=== PATIENT | male | born 1935 | race Caucasian/White ===

== ENCOUNTER 2017-07-15 17:57 | Inpatient (IN) | payer OTHER ==
[~2017-07-15] VITALS: Ht 175.3 cm; Wt 78.9 kg
--- NOTE | ~2017-07-15 | EKG ---
[address] [employer] [place] [address] ELECTROCARDIOGRAM REPORT Name: CRYSTAL ALVARADO BRIAN Room #: 406-P ADM IN M.R.#: [id number] Admission: 07/15/17 Attend Phys: Aki Smith MD Discharge: Date of : 31 Report #: [id number] THIS REPORT FOR: //name// [facility] ED Test Date: 2017-07-15 Test Time: 18:03:05 Pat Name: CRYSTAL ALVARADO Department: Room: 406 Gender: M Sonar Technician: PRAVEEN : 1935 Requested By: Margaret Chawla Order Number: [id number] MD: Bhavin Acosta Measurements Intervals [place] Rate: 69 P: HI: QRS: -4 QRSD: 111 T: 21 QT: 424 QTc: 455 Interpretive Statements Atrial fibrillation Low voltage, precordial leads Compared to ECG 10/16/2015 01:31:49 No significant change was found Electronically Signed On 07-17-2017 13:38:19 CDT by Bhavin Acosta [email or web address] <ELECTRONICALLY SIGNED> By: Bhavin Acosta MD, [facility] 07/17/17 1338 02 02 Bhavin Acosta MD, [facility] /EPI
--- NOTE | ~2017-07-15 | EKG ---
[address] [address] ELECTROCARDIOGRAM REPORT Name: CRYSTAL ALVARADO BRIAN Room #: 406-P ADM IN M.R.#: [id number] Admission: 07/15/17 Attend Phys: Aki Smith MD Discharge: Date of : 33 Report #: [id number] THIS REPORT FOR: //name// [facility] Test Date: 2017-07-16 Test Time: 08:12:28 Pat Name: CRYSTAL ALVARADO Department: Room: 406 P Gender: M Systems Engineer: edwige : 1935 Requested By: Shannon Burkett Order Number: [id number] MD: Bhavin Acosta Measurements Intervals [place] Rate: 129 P: VA: QRS: 0 QRSD: 105 T: 84 QT: 341 QTc: 500 Interpretive Statements Atrial fibrillation Nonspecific ST and T wave abnormality Compared to ECG 10/16/2015 01:31:49 Heart rate has increased Electronically Signed On 07-17-2017 13:42:51 CDT by Bhavin Acosta [email or web address] <ELECTRONICALLY SIGNED> By: Bhavin Acosta MD, [facility] 07/17/17 1342 D: [id number] 1 Bhavin Acosta MD, FAC /EPI
[~2017-07-15 17:57] MED LIST: APAP500; ASPIRIN EC81 M1 PO; CENTRUM SILVER1 EAC4 PO; DILTIAZEM 24HR240 M2 PO; DILTIAZEM 24HR240 MG PO; FISHOIL PO; JANTOVEN2.5 MG PO; JANTOVEN5 MG PO; LIPITOR10 MG PO; LISINOPRIL5 MG PO; LOPRESSOR100 MG PO; NAPROSYN250 MG PO; NORCO 5-325 TA1 EACH PO; PENICILLIN V P500 MG PO; POTASSIUM20 PO; TOPROL XL100 MG PO; TORSEMIDE20 MG PO; TRIAMCINOLONE A80 G2 TOP
[2017-07-15] MEDS ORDERED: BACTRIM DS TAB1 EACH PO (18:02)
[2017-07-15] MEDS ORDERED: MYRBETRIQ50 MG PO (18:02)
[2017-07-15 18:38] LABS: ABSOLUTE NEUTROPHILS 7.1 thou/uL (1.4-8.2); BASOPHILS 0.2 % (0.0-2.0); EOSINOPHILS 2.6 % (0.0-3.0); HEMATOCRIT 38.1 % (42.0-52.0); HEMOGLOBIN 12.8 gm/dL (14.0-18.0); LYMPHOCYTES 7.3 % (24.0-44.0); MCH 31.7 pg (26.0-34.0); MCHC 33.7 g/dL (28.0-37.0); MCV 94.1 fL (80.0-100.0); MONOCYTES 8.8 % (1.0-8.0); PLATELET COUNT 249 thou/uL (150-400); POLYS 81.1 % (36.0-66.0); RBC 4.05 mil/uL (4.50-6.00); RDW 14.3 % (10.5-14.5); WBC 8.8 thou/uL (4.0-11.0)
[2017-07-15 18:44] LABS: ANION GAP 12 mmol/L (7-16); BUN 23 mg/dL (7-18); CALCIUM 8.9 mg/dL (8.5-10.1); CHLORIDE 101 mmol/L (98-107); CO2 24 mmol/L (21-32); CREATININE 1.7 mg/dL (0.7-1.3); GLUCOSE 122 mg/dL (74-106); POTASSIUM 4.6 mmol/L (3.5-5.1); SODIUM 137 mmol/L (136-145)
[2017-07-15 18:53] LABS: ALBUMIN 3.3 g/dL (3.4-5.0); DIRECT BILIRUBIN < 0.1 mg/dL (<0.1-0.3); LIPASE 149 U/L (73-393); SGOT 25 U/L (15-37); SGPT 26 U/L (30-65); TOTAL BILIRUBIN 0.2 mg/dL (<0.1-1.0); TOTAL PROTEIN 8.1 g/dL (6.4-8.2); TROPONIN-I < 0.04 ng/mL (<0.06)
[2017-07-15 19:27] LABS: URINE BILIRUBIN NEGATIVE (Negative); URINE BLOOD NEGATIVE (Negative); URINE CLARITY CLEAR; URINE COLOR YELLOW; URINE GLUCOSE-RANDOM* NEGATIVE (Negative); URINE KETONES NEGATIVE (Negative); URINE LEUKOCYTES-REFLEX NEGATIVE (Negative); URINE NITRITE-REFLEX NEGATIVE (Negative); URINE PROTEIN (DIPSTICK) TRACE (Negative); URINE SPECIFIC GRAVITY >= 1.030 (1.005-1.035); URINE UROBILINOGEN 0.2 E.U./dl (0.2-1.0)
[2017-07-15 20:15] LABS: APTT 42.3 Seconds (24.5-32.8); INR 2.3; PROTIME 23.3 Seconds (9.3-11.4)
[2017-07-15 20:19] VITALS: BP 122/66
[2017-07-15 20:51] VITALS: BP 128/59
[2017-07-15 21:45] VITALS: BP 136/53
[2017-07-16 04:31] LABS: HEMATOCRIT 33.4 % (42.0-52.0); HEMOGLOBIN 11.3 gm/dL (14.0-18.0); MCH 31.8 pg (26.0-34.0); MCV 93.6 fL (80.0-100.0); RBC 3.56 mil/uL (4.50-6.00); RDW 14.1 % (10.5-14.5); WBC 6.8 thou/uL (4.0-11.0)
[2017-07-16 04:46] LABS: INR 2.4; PROTIME 24.2 Seconds (9.3-11.4)
[2017-07-16 04:55] LABS: CALCIUM 8.2 mg/dL (8.5-10.1); CREATININE 1.3 mg/dL (0.7-1.3); POTASSIUM 4.8 mmol/L (3.5-5.1)
[2017-07-16 08:00] VITALS: BP 131/78
[2017-07-16 19:24] VITALS: BP 115/63
[2017-07-17 03:45] VITALS: BP 126/60
[2017-07-17 06:00] LABS: HEMOGLOBIN 12.7 gm/dL (14.0-18.0); MCH 31.2 pg (26.0-34.0); MCHC 33.5 g/dL (28.0-37.0); MCV 93.3 fL (80.0-100.0); RBC 4.07 mil/uL (4.50-6.00); RDW 14.6 % (10.5-14.5); WBC 5.6 thou/uL (4.0-11.0)
[2017-07-17 06:20] LABS: ALBUMIN 2.6 g/dL (3.4-5.0); CREATININE 1.3 mg/dL (0.7-1.3); POTASSIUM 4.2 mmol/L (3.5-5.1); TOTAL BILIRUBIN 0.3 mg/dL (<0.1-1.0); TOTAL PROTEIN 6.9 g/dL (6.4-8.2)
[2017-07-17 08:05] VITALS: BP 125/82
[2017-07-17 15:41] VITALS: BP 126/61
[2017-07-17 20:10] VITALS: BP 122/65
[2017-07-18 04:00] VITALS: BP 111/66
[2017-07-18 05:54] LABS: MCH 31.2 pg (26.0-34.0); MCHC 33.4 g/dL (28.0-37.0); MCV 93.4 fL (80.0-100.0); RBC 4.17 mil/uL (4.50-6.00); RDW 14.4 % (10.5-14.5); WBC 5.7 thou/uL (4.0-11.0)
[2017-07-18 06:16] LABS: ALBUMIN 2.7 g/dL (3.4-5.0); CALCIUM 8.3 mg/dL (8.5-10.1); CREATININE 1.1 mg/dL (0.7-1.3); POTASSIUM 3.8 mmol/L (3.5-5.1); TOTAL BILIRUBIN 0.2 mg/dL (<0.1-1.0); TOTAL PROTEIN 7.1 g/dL (6.4-8.2)
[2017-07-18 08:37] VITALS: BP 128/79
[2017-07-18] MEDS ORDERED: AUGMENTIN 875-1 EACH PO (17:16)
[2017-07-18 17:18] VITALS: BP 128/79
[2017-07-18 17:27] VITALS: BP 128/79
== END 2017-07-18 18:40 | disposition home health service (06) | DRG 871 ==
LOC: ER 17:57 → EROBS 19:55 → 4N 19:55
PROVIDERS: Emergency Medicine; Hospitalist; Nurse Practitioner Family
DX: A41.9 Sepsis, unspecified organism (principal); J18.9 Pneumonia, unspecified organism; N17.9 Acute kidney failure, unspecified; M10.9 Gout, unspecified; I48.2 Chronic atrial fibrillation; Z96.652 Presence of left artificial knee joint; I50.9 Heart failure, unspecified; E78.5 Hyperlipidemia, unspecified; G47.33 Obstructive sleep apnea (adult) (pediatric); I11.0 Hypertensive heart disease with heart failure; I25.10 Atherosclerotic heart disease of native coronary artery without angina pectoris; Z96.1 Presence of intraocular lens; I25.2 Old myocardial infarction; Z95.1 Presence of aortocoronary bypass graft; Z90.49 Acquired absence of other specified parts of digestive tract; Z98.42 Cataract extraction status, left eye; Z98.41 Cataract extraction status, right eye; Z79.899 Other long term (current) drug therapy; Z88.8 Allergy status to other drugs, medicaments and biological substances
CPT/HCPCS: 10790

== ENCOUNTER 2017-08-27 13:12 | Emergency (ER) | payer OTHER ==
[~2017-08-27] VITALS: Ht 175.3 cm; Wt 76.2 kg
[~2017-08-27 13:12] MED LIST changes: +AUGMENTIN 875-1 EACH PO; +BACTRIM DS TAB1 EACH PO; +MYRBETRIQ50 MG PO
[2017-08-27 13:55] LABS: HEMATOCRIT 39.4 % (42.0-52.0); HEMOGLOBIN 13.4 gm/dL (14.0-18.0); MCH 31.6 pg (26.0-34.0); MCHC 33.9 g/dL (28.0-37.0); MCV 93.1 fL (80.0-100.0); RBC 4.23 mil/uL (4.50-6.00); RDW 14.3 % (10.5-14.5); WBC 6.9 thou/uL (4.0-11.0)
[2017-08-27 14:09] LABS: INR 2.3; PROTIME 23.5 Seconds (9.3-11.4)
== END 2017-08-27 15:48 | disposition home or self-care (01) ==
LOC: ER 13:12
PROVIDERS: Emergency Medicine
DX: R04.0 Epistaxis (principal); M10.9 Gout, unspecified; I11.0 Hypertensive heart disease with heart failure; M19.90 Unspecified osteoarthritis, unspecified site; I48.91 Unspecified atrial fibrillation; I25.2 Old myocardial infarction; Z96.652 Presence of left artificial knee joint

== ENCOUNTER 2018-06-05 04:59 | Inpatient (IN) | payer OTHER ==
[~2018-06-05] VITALS: Ht 175.3 cm; Wt 75.7 kg
[2018-06-05] VITALS (7 sets, daily range): BP systolic 121–152; BP diastolic 44–61
[~2018-06-05 04:59] MED LIST changes: +DILTIAZEM 24HR180 M2 PO; -DILTIAZEM 24HR240 M2 PO; -TOPROL XL100 MG PO; +TOPROL XL50 MG PO
[2018-06-05 05:15] LABS: ABSOLUTE NEUTROPHILS 6.3 thou/uL (1.4-8.2); BASOPHILS 0.8 % (0.0-2.0); EOSINOPHILS 3.2 % (0.0-3.0); HEMATOCRIT 38.9 % (42.0-52.0); HEMOGLOBIN 13.2 gm/dL (14.0-18.0); LYMPHOCYTES 21.4 % (24.0-44.0); MCH 32.4 pg (26.0-34.0); MCHC 33.9 g/dL (28.0-37.0); MCV 95.6 fL (80.0-100.0); MONOCYTES 8.7 % (1.0-8.0); PLATELET COUNT 187 thou/uL (150-400); POLYS 65.9 % (36.0-66.0); RBC 4.07 mil/uL (4.50-6.00); RDW 15.1 % (10.5-14.5); WBC 9.5 thou/uL (4.0-11.0)
[2018-06-05 05:28] LABS: ANION GAP 14 mmol/L (7-16); BUN 34 mg/dL (7-18); CALCIUM 8.5 mg/dL (8.5-10.1); CHLORIDE 106 mmol/L (98-107); CO2 20 mmol/L (21-32); CREATININE 1.4 mg/dL (0.7-1.3); GLUCOSE 116 mg/dL (74-106); POTASSIUM 4.1 mmol/L (3.5-5.1); SODIUM 140 mmol/L (136-145)
[2018-06-05 05:33] LABS: ALBUMIN 3.5 g/dL (3.4-5.0); SGOT 20 U/L (15-37); SGPT 15 U/L (30-65); TOTAL BILIRUBIN 0.3 mg/dL (<0.1-1.0); TOTAL PROTEIN 7.7 g/dL (6.4-8.2); TROPONIN-I <0.06 ng/mL (<0.06)
[2018-06-05 06:06] LABS: INR 2.9
--- NOTE | 2018-06-05 08:46 | EKG ---
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: CURLY : 1935 Requested By: Jesi Caldwell Order Number: [id number] MD: Bhavin Acosta Measurements Intervals [place] Rate: 48 P: FL: QRS: 2 QRSD: 113 T: 28 QT: 474 QTc: 424 Interpretive Statements Atrial fibrillation Ventricular premature complex Nonspecific ST segment abnormality Compared to ECG 07/16/2017 08:12:28 Ventricular premature complex(es) now present Electronically Signed On 06-05-2018 8:46:33 TEST ENGINE EVALUATOR by Bhavin Acosta [email or web address] <ELECTRONICALLY SIGNED> By: Bhavin Acosta MD, [facility] 06/05/1846 0506 0506 Bhavin Acosta MD, [facility] /EPI
[2018-06-05] MEDS ORDERED: KLOR-CON M2020 MEQ PO (09:51)
--- NOTE | 2018-06-05 12:53 | NUR ---
PT ADMITTED RELATED TO SOA. CM REVIEWED CHART AND SPOKE WITH CARE TEAM. PT IS A&O X4. CM ROLE INTRODCUED. PT INDICATED HE LIVES IN A HOUSE WITH HIS SPOUSE WITH 6 STEPS TO ENTER AND TWO FLIGHTS OF 13 STEPS INSIDE. 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 PT HAS ACCESS TO A FWW SHOULD HE NEED IT. PT HAD BEEN ON SERVICE WITH [facility] IN THE PAST AND WOULD BE RECEPTIVE TO USEING THEM AGAIN UPON DC IF INDICATED. CM TO FOLLOW INDCIATED WITH DC PLANNING.
--- NOTE | 2018-06-05 14:35 | 2DMMODE ---
[facility] [address] [place] [address] 2 D/M-MODE ECHOCARDIOGRAM Name: CRYSTAL ALVARADO Room #: 455-P ADM IN M.R.#: [id number] Admission: 06/05/18 Attend Phys: Edwina Bray Discharge: Date of : 33 Date of Service: 06/05/18 1435 Report #: [id number] THIS REPORT FOR: //name// APPROVED REPORT Study performed: 06/05/2018 11:37:23 EXAM: Comprehensive 2D, Doppler, and color-flow Echocardiogram Patient Location: Bedside Room #: [facility] Status: routine BSA: 1.98 HR: 65 bpm BP: 133/53 mmHg Rhythm: Atrial Fibrillation Other Information Study Quality: Fair Indications Congestive Heart Failure Atrial Fibrillation Dyspnea CAD Hypertension/HDD 2D Dimensions RVDd: 49.14 mm IVSd: 7.71 (7-11mm) LVOT Diam: 18.73 (18-24mm) LVDd: 47.91 mm PWd: 8.27 (7-11mm) Ascending Ao: 30.45 (22-36mm) LVDs: 33.82 (25-40mm) Aortic Root: 27.43 mm IVC: 32.00 mm Volumes Left Atrial Volume (Systole) Single Plane 4CH: 98.64 mL Single Plane 2CH: 83.69 mL LA ESV Index: 49.00 mL/m2 Aortic Valve AoV Peak Saw.: 1.33 m/s AO Peak Gr.: 7.11 mmHg LVOT Max P.48 mmHg LVOT Max V: 1.06 m/s KATHLEEN Vmax: 2.19 cm2 Pulmonary Valve [facility] [address] [place] [address] 2 D/M-MODE ECHOCARDIOGRAM Name: CHRISTIANOCRYSTAL TORRES Room #: 455-P ADM IN .R.#: [id number] Admission: 06/05/18 Attend Phys: Edwina Bray Discharge: Date of : 33 Date of Service: 06/05/18 1435 Report #: [id number] PV Peak Saw.: 1.09 m/s PV Peak Gr.: 4.74 mmHg Tricuspid Valve TR Peak Saw.: 3.00 m/s TR Peak Gr.: 36.35 mmHg PA Pressure: 46.00 mmHg Left Ventricle The left ventricle is normal size. There is normal LV segmental wall motion. There is normal left ventricular wall thickness. The left ventricular systolic function is normal. The left ventricular ejection fraction is within the normal range. LVEF is 55-60%. This study is not technically sufficient to allow evaluation of the LV diastolic function due to atrial fibrillation. Right Ventricle Right ventricle is dilated. The right ventricular systolic function is normal. Atria Left atrium is dilated. Right atrium is dilated. Aortic Valve Aortic valve is calcified. Mild aortic regurgitation. There is no aortic valvular stenosis. Mitral Valve Mild mitral annular calcification, leaflet sclerosis Trace to mild mitral regurgitation. No evidence of mitral valve stenosis. Tricuspid Valve The tricuspid valve is normal in structure. There is severe tricuspid regurgitation. Estimated PAP 46 mmHg. There is moderate pulmonary hypertension. Pulmonic Valve The pulmonary valve is normal in structure. Mild pulmonic regurgitation. Great Vessels The aortic root is normal in size. IVC is dilated and collapses <50% with inspiration. [facility] Advanced ICU [address] [place] [address] 2 D/M-MODE ECHOCARDIOGRAM Name: CHRISTIANOCRYSTAL BRIAN Room #: 455-P ADM IN M.R.#: [id number] Admission: 06/05/18 Attend Phys: Edwina Bray Discharge: Date of : 33 Date of Service: 06/05/18 1435 Report #: [id number] Pericardium There is no pericardial effusion. <Conclusion> The left ventricular systolic function is normal. There is normal LV segmental wall motion. LVEF 55-60%. Right ventricle is dilated. Both atria are dilated. Aortic valve is calcified. Mild aortic regurgitation, no stenosis. Mild mitral annular calcification, leaflet sclerosis. Trace to mild mitral regurgitation. There is severe tricuspid regurgitation. Estimated pulmonary artery pressure of 46 mmHg. There is no pericardial effusion. <ELECTRONICALLY SIGNED> By: Bhavin Acosta MD, [facility] 06/05/18 [phone] Bhavin Acosta MD, FACC /INF
--- NOTE | 2018-06-05 19:51 | NUR ---
Pt stable josh out the shift, he us up at brett and able to talk to the restroom with standby assists. On 2L of O2, but did not require any while and after walking with pt around the halls. Heart healthy / low sodium diet is well tolerated. Pt would go marco and afib on the tele, informed Dr. Acosta. Oral and IV medication given.
[2018-06-06 03:30] VITALS: BP 117/35
--- NOTE | 2018-06-06 05:36 | NUR ---
PT ON 2L NC, WHICH HE STATES IS WHAT HE WEARS AT HOME. NO C/O SOA OR DIZZINESS. WHEEZES HEARD IN LUNGS. PT HAS NO C/O PAIN OR DISCOMFORT. SLEPT THE WHOLE NIGHT WITH NO CONCERNS. PROGRESSING TOWARDS MEETING GOALS.
[2018-06-06 07:55] VITALS: BP 125/51
[2018-06-06 08:18] LABS: CREATININE 1.4 mg/dL (0.7-1.3); POTASSIUM 3.2 mmol/L (3.5-5.1)
--- NOTE | 2018-06-06 08:25 | EKG ---
[address] [address] ELECTROCARDIOGRAM REPORT Name: CRYSTAL ALVARADO Room #: 455-P ADM IN M.R.#: [id number] Admission: 06/05/18 Attend Phys: Edwina Bray MD Discharge: Date of : 33 Report #: [id number] THIS REPORT FOR: //name// [facility] Test Date: 2018-06-06 Test Time: 07:23:54 Pat Name: CRYSTAL ALVARADO Department: Room: 455 P Gender: M Respiratory Manager: GR : 1935 Requested By: Bhavin Acosta Order Number: [id number] MD: Cas Dukes Measurements Intervals [place] Rate: 79 P: DC: QRS: -10 QRSD: 108 T: 8 QT: 410 QTc: 471 Interpretive Statements Atrial fibrillation Nonspecific repolarization abnormalities Compared to ECG 06/05/2018 05:06:48 Ventricular premature complex(es) no longer present ST (T wave) deviation no longer present Electronically Signed On 06-06-2018 8:25:48 SALES REPRESENTATIVE PUBLICATIONS by Cas Dukes [email or web address] <ELECTRONICALLY SIGNED> By: Cas Dukes MD 06/06/18824 2 2 Cas Dukes MD /ISRRAEL
[2018-06-06 08:26] LABS: INR 2.6; PROTIME 26.7 Seconds (9.3-11.4)
--- NOTE | 2018-06-06 13:49 | NUR ---
CARE TEAM INDICATED THAT THEY ANTIPATE PT WILL BE MEDICALLY STABLE TO DISCHARGE HOME TOMORROW Tuesday06/07/18. PT HAS CPAP FOR HOME USE BUT DOESN'T HAVE HOME O2. PT HAS BEEN USING 2L VIA NC HERE. PT INDICATED PT WOULD BE ABLE TO RETURN HOME WITH HOME HEALTH SERVICES. PT HAD BEEN ON SERVICE WITH [facility]. CM NOTIFIED THEM OF PROBABLE DC HOME TOMORROW. PT IS TO MOVE TO SENIOR SUITES THIS AFTERNOON. CM TO FOLLOW INDICATED WITH DC PLANNING.
[2018-06-06 15:20] VITALS: BP 113/50
--- NOTE | 2018-06-06 17:00 | NUR ---
PATIENT TRANSFERRED TO UNIT APPROXIMATELY 1635. REPORT GIVEN BY NURSE SUAREZ ON 4W. PATIENT ORIENTED TO UNIT AND STAFF AND VITAL SIGNS WERE TAKEN. PATIENT CURRENTLY LYING IN BED WITH CALL LIGHT WITHIN REACH.
[2018-06-06 18:14] VITALS: BP 135/61
--- NOTE | 2018-06-07 03:30 | NUR ---
PT RESTED GOOD, DENIES PAIN, UP ADLIB, NO SOB NOTED, HUNGRY LAST NOC, REQUESTED ICE CREAM, WATCHED [employer] STATE GAME AND WENT TO BED, ABLE TO TURN AND REPOSITION SELF, HOURLY ROUNDING, MONITORED.
[2018-06-07 05:18] VITALS: BP 137/66
[2018-06-07 05:20] VITALS: BP 125/56
[2018-06-07 05:21] VITALS: BP 131/57
--- NOTE | 2018-06-07 05:24 | NUR ---
ORTHOSTATIC VITAL SIGNS OBTAINED, NO SIGNIFICANT DROP, PT UP ADLIB, DENIES DIZZINESS WHEN UP, DENIES PAIN, MONITORED.
[2018-06-07 05:39] LABS: CALCIUM 8.4 mg/dL (8.5-10.1); CREATININE 1.4 mg/dL (0.7-1.3); POTASSIUM 4.1 mmol/L (3.5-5.1)
[2018-06-07 07:11] VITALS: BP 137/65
[2018-06-07 09:53] VITALS: BP 137/65
--- NOTE | 2018-06-07 10:01 | NUR ---
Following for d/c planning needs. Spoke with physician and nurse, and reviewed chart. Pt to d/c home today with [facility]. Notified [facility] of d/c. Pt does not require oxygen. No other needs identified.
[2018-06-07] MEDS ORDERED: PANTOPRAZOLE SO40 M1 PO (11:28)
[2018-06-07] MEDS ORDERED: MIRALAX17 GM PO (11:28)
[2018-06-07] MEDS ORDERED: TYLENOL EXTRA500 MG PO (11:28)
--- NOTE | 2018-06-07 13:25 | NUR ---
I AGREE WITH NURSING ASSESSMENT DONE BY YOKO/RUFINO.
--- NOTE | 2018-06-07 13:35 | NUR ---
ASSUMED CARE OF PATIENT THIS MORNING. PATIENT IS A&OX4. HE IS UP AD RITA. IV L. WRIST SALINE LOCKED. NO ABNORMAL ASSESSMENT FINDINGS. CONTINENT OF BOWEL AND BLADDER. VOIDS PER TOILET. PATIENT DOES NOT COMPLAIN OF ANY PAIN. PATIENT WILL BE DISCHARGED THIS AFTERNOON HOME WITH HOME HEALTH. HE WILL BE DISCHARGED WITH 3 PRESCRIPTIONS.
--- NOTE | 2018-06-07 13:52 | NUR ---
PATIENT DISCHARGED HOME WITH HOME HEALTH. IV DC'D. PATIENT LEFT WITH 3 PRESCRIPTIONS. DISCHARGED INSTRUCTIONS AND PRESCRIPTIONS REVIEWED WITH PATIENT AND PATIENT WAS IN AGREEMENT AND SIGNED THE DOCUMENTATION. VOLUNTEER TRANSPORT CAME TO UNIT AND PICKED PATIENT UP WITH HIS BELONGINGS AND TOOK HIM TO THE [facility] WERE HIS SON WAS THERE FOR DEPARTURE.
--- NOTE | 2018-06-09 08:41 | HC ---
[facility] [place] [address] CONSULTATION Name: CRYSTAL ALVARADO Room #: 223-P [facility] IN M.R.#: [id number] Admission: 06/05/18 Attend Phys: Edwina Bray MD Discharge: 06/07/18 Date of : 33 Report #: [id number] THIS REPORT FOR: //name// CC: Bhavin Shelton REASON FOR CONSULTATION: Shortness of breath. HISTORY OF PRESENT ILLNESS: The patient is an 83-year-old gentleman with remote bypass surgery, sleep apnea, dyslipidemia, hypertension, diastolic heart failure and permanent atrial fibrillation. His bypass was in 2003 with a left internal mammary to the LAD, vein graft to the circumflex and a vein graft to the right coronary. The patient now presents with a 2- to 3-day history of progressive shortness of breath and orthopnea. He has had more than usual lower extremity edema. He does report that he has not been taking his diuretic regularly over the past several weeks. He denies chest heaviness or pressure. Occasional lightheadedness, without syncope. He has been compliant with his CPAP for sleep apnea. Blood pressure readings have been well controlled. No bleeding problems with warfarin. No issues or problems related to his complex pharmacologic regimen. ALLERGIES: HE IS ALLERGIC TO ALLOPURINOL. MEDICATIONS: His medicines include atorvastatin 10 mg daily, diltiazem CD 240 mg daily, Prevacid 30 mg daily, Toprol-XL 150 mg daily, torsemide 40 mg daily, potassium 40 mEq daily and warfarin 5 mg 3 days a week and 2.5 mg 4 days a week. PAST MEDICAL HISTORY: His past history and medical records have been reviewed and include a history of coronary artery disease; dyslipidemia; prior pneumonia; sleep apnea, on CPAP; appendectomy; herniorrhaphy and left total knee replacement. SOCIAL HISTORY: He is a former smoker. FAMILY HISTORY: Notable for vascular disease in both parents. REVIEW OF SYSTEMS: All systems negative, except as that noted above. PHYSICAL EXAMINATION: GENERAL: Exam reveals a pleasant elderly gentleman, in no distress. VITAL SIGNS: Blood pressure is 152/54, heart rate of 54 and regular. He is afebrile. HEENT: There are neither xanthelasma, subcutaneous xanthomata, oral mucosal, digital cyanosis or kyphoscoliosis present. [facility] [address] [place] [address] CONSULTATION Name: CHRISTIANOCRYSTAL BRIAN Room #: [address] [place] [address] IN .R.#: [id number] Admission: 06/05/18 Attend Phys: Edwina Bray MD Discharge: 06/07/18 Date of : 33 Report #: [id number] CHEST: Reveals a few bibasilar crackles. CARDIAC EXAMINATION: An irregularly irregular rhythm with a normal S1, S2. 3/6 systolic murmur RSB. Elevated JVP ABDOMEN: Soft and nontender. EXTREMITIES: With 1- to 2+ pitting edema. Radial pulses are 2+. NEUROLOGIC: He is alert, with a nonfocal exam. LABORATORY DATA: Sodium 140, potassium 4.1 and creatinine 1.4. ProBNP of 5000. Troponin 0. INR of 2.9. White count 9.5, hemoglobin 13, hematocrit 38 and platelet count 187,000. Chest x-ray demonstrates cardiomegaly with mild vascular congestion. EKG, atrial fibrillation with a controlled ventricular response and occasional PVC. IMPRESSION: 1. Lypjs-gb-ovedvtk diastolic heart failure. Possible severe isolated TR 2. Coronary artery disease with remote bypass. 3. Hypertension. 4. Sleep apnea, on CPAP. 5. Permanent atrial fibrillation. 6. Dyslipidemia. 7. Hypercoagulable. RECOMMENDATIONS: 1. Intravenous Lasix. I suspect this heart failure exacerbation is related to incomplete or poor compliance with his diuretic regimen, which he admits to. 2. Echocardiogram with Doppler. 3. Thyroid function studies. 4. Continued anticoagulant therapy (INR 2-3 range). I have discussed these issues with the patient, his family and nursing staff. Thank you for asking me to participate in his care. <ELECTRONICALLY SIGNED> By: Bhavin Acosta MD, FACC 06/09/18 0841 0816 0937 Bhavin Acosta MD, FACC /nt
== END 2018-06-07 14:06 | disposition home health service (06) | DRG 682 ==
LOC: ER 04:59 → 4W 05:52 → EROBS 05:52 → 4W 06:19 → SICU 06-06 16:44 → ENTRNSPT 06-07 12:45 → EDTRNSPT 06-07 12:54 → EDTRNSPTSTS 06-07 12:56 → SICU 06-07 14:06
PROVIDERS: Internal Medicine; Nurse Practitioner; Student in an Organized Health Care Education/Training Program; ADMIT Internal Medicine
DX: N17.9 Acute kidney failure, unspecified (principal); I50.33 Acute on chronic diastolic (congestive) heart failure; J96.01 Acute respiratory failure with hypoxia; I13.0 Hypertensive heart and chronic kidney disease with heart failure and stage 1 through stage 4 chronic kidney disease, or unspecified chronic kidney disease; D68.59 Other primary thrombophilia; N18.4 Chronic kidney disease, stage 4 (severe); M62.84 Sarcopenia; E03.9 Hypothyroidism, unspecified; M10.9 Gout, unspecified; E87.6 Hypokalemia; M19.90 Unspecified osteoarthritis, unspecified site; Z96.652 Presence of left artificial knee joint; E78.5 Hyperlipidemia, unspecified; N40.0 Benign prostatic hyperplasia without lower urinary tract symptoms; Z96.1 Presence of intraocular lens; G47.33 Obstructive sleep apnea (adult) (pediatric); I48.2 Chronic atrial fibrillation; I25.10 Atherosclerotic heart disease of native coronary artery without angina pectoris; I07.1 Rheumatic tricuspid insufficiency; Z79.82 Long term (current) use of aspirin; Z88.8 Allergy status to other drugs, medicaments and biological substances; I25.2 Old myocardial infarction; Z95.1 Presence of aortocoronary bypass graft; Z79.01 Long term (current) use of anticoagulants; Z79.899 Other long term (current) drug therapy; Z90.49 Acquired absence of other specified parts of digestive tract; Z98.42 Cataract extraction status, left eye; Z98.41 Cataract extraction status, right eye
CPT/HCPCS: 10045; 15002

== ENCOUNTER → 2019-05-14 | Outpatient (CLI) | payer OTHER ==
[~2019-05-14] MED LIST changes: +KLOR-CON M2020 MEQ PO; +MIRALAX17 GM PO; +PANTOPRAZOLE SO40 M1 PO; +TYLENOL EXTRA500 MG PO
== END ==
LOC: SJCVC 13:17
DX: Z51.81 Encounter for therapeutic drug level monitoring (principal); I48.21 Permanent atrial fibrillation; I11.0 Hypertensive heart disease with heart failure; I50.9 Heart failure, unspecified; M10.9 Gout, unspecified; E78.00 Pure hypercholesterolemia, unspecified; I25.810 Atherosclerosis of coronary artery bypass graft(s) without angina pectoris; Z95.1 Presence of aortocoronary bypass graft; Z79.01 Long term (current) use of anticoagulants

== ENCOUNTER → 2019-06-01 | Outpatient (CLI) | payer OTHER | LOC: SJCVC 11:21 | DX: Z51.81 Encounter for therapeutic drug level monitoring (principal); I48.21 Permanent atrial fibrillation; I25.10 Atherosclerotic heart disease of native coronary artery without angina pectoris; I11.0 Hypertensive heart disease with heart failure; I50.9 Heart failure, unspecified; G47.33 Obstructive sleep apnea (adult) (pediatric); M19.90 Unspecified osteoarthritis, unspecified site; E78.00 Pure hypercholesterolemia, unspecified; Z95.1 Presence of aortocoronary bypass graft; Z79.01 Long term (current) use of anticoagulants; Z87.891 Personal history of nicotine dependence ==

== ENCOUNTER → 2019-06-08 | Outpatient (CLI) | payer OTHER | LOC: SJCVC 10:57 | DX: Z51.81 Encounter for therapeutic drug level monitoring (principal); G47.33 Obstructive sleep apnea (adult) (pediatric); I48.21 Permanent atrial fibrillation; I25.10 Atherosclerotic heart disease of native coronary artery without angina pectoris; I11.0 Hypertensive heart disease with heart failure; I50.9 Heart failure, unspecified; M19.90 Unspecified osteoarthritis, unspecified site; E78.00 Pure hypercholesterolemia, unspecified; Z87.891 Personal history of nicotine dependence; Z90.49 Acquired absence of other specified parts of digestive tract ==

== ENCOUNTER → 2019-06-29 | Outpatient (CLI) | payer OTHER | LOC: SJCVC 12:50 | DX: I48.21 Permanent atrial fibrillation (principal); I25.10 Atherosclerotic heart disease of native coronary artery without angina pectoris; I10 Essential (primary) hypertension; E78.00 Pure hypercholesterolemia, unspecified; Z95.1 Presence of aortocoronary bypass graft ==

== ENCOUNTER → 2019-07-06 | Outpatient (CLI) | payer OTHER | LOC: SJCVC 09:26 | DX: Z51.81 Encounter for therapeutic drug level monitoring (principal); I48.21 Permanent atrial fibrillation; I11.0 Hypertensive heart disease with heart failure; I50.9 Heart failure, unspecified; G47.33 Obstructive sleep apnea (adult) (pediatric); I25.10 Atherosclerotic heart disease of native coronary artery without angina pectoris; M19.90 Unspecified osteoarthritis, unspecified site; M10.9 Gout, unspecified; E78.00 Pure hypercholesterolemia, unspecified; Z95.1 Presence of aortocoronary bypass graft; Z87.891 Personal history of nicotine dependence ==

== ENCOUNTER → 2019-07-13 | Outpatient (CLI) | payer OTHER | LOC: SJCVC 13:28 | DX: Z51.81 Encounter for therapeutic drug level monitoring (principal); I48.21 Permanent atrial fibrillation; I11.0 Hypertensive heart disease with heart failure; I50.9 Heart failure, unspecified; E78.00 Pure hypercholesterolemia, unspecified; Z79.01 Long term (current) use of anticoagulants ==

== ENCOUNTER → 2019-08-24 | Outpatient (CLI) | payer OTHER | LOC: SJCVC 14:17 | DX: Z51.81 Encounter for therapeutic drug level monitoring (principal); Z87.891 Personal history of nicotine dependence; Z79.01 Long term (current) use of anticoagulants ==

== ENCOUNTER → 2019-09-26 | Outpatient (CLI) | payer OTHER | LOC: SJCVC 12:51 | DX: Z51.81 Encounter for therapeutic drug level monitoring (principal); I48.21 Permanent atrial fibrillation; I11.0 Hypertensive heart disease with heart failure; I50.9 Heart failure, unspecified; I25.810 Atherosclerosis of coronary artery bypass graft(s) without angina pectoris; M19.90 Unspecified osteoarthritis, unspecified site; E78.00 Pure hypercholesterolemia, unspecified; M10.9 Gout, unspecified; E78.5 Hyperlipidemia, unspecified; Z95.1 Presence of aortocoronary bypass graft; Z79.01 Long term (current) use of anticoagulants; Z79.899 Other long term (current) drug therapy; Z87.891 Personal history of nicotine dependence ==

== ENCOUNTER → 2019-10-03 | Outpatient (CLI) | payer OTHER | LOC: SJCVC 09:25 | DX: Z51.81 Encounter for therapeutic drug level monitoring (principal); Z79.01 Long term (current) use of anticoagulants ==

== ENCOUNTER → 2019-10-17 | Outpatient (CLI) | payer OTHER | LOC: SJCVC 13:50 | PROVIDERS: ATTEND Internal Medicine | DX: Z51.81 Encounter for therapeutic drug level monitoring (principal); I48.21 Permanent atrial fibrillation; I25.810 Atherosclerosis of coronary artery bypass graft(s) without angina pectoris; I11.0 Hypertensive heart disease with heart failure; I50.9 Heart failure, unspecified; M19.90 Unspecified osteoarthritis, unspecified site; I25.10 Atherosclerotic heart disease of native coronary artery without angina pectoris; M10.9 Gout, unspecified; E78.00 Pure hypercholesterolemia, unspecified; E78.5 Hyperlipidemia, unspecified; Z95.1 Presence of aortocoronary bypass graft; Z79.01 Long term (current) use of anticoagulants; Z79.899 Other long term (current) drug therapy; Z87.891 Personal history of nicotine dependence ==

== ENCOUNTER → 2019-10-24 | Outpatient (CLI) | payer OTHER | LOC: SJCVC 14:24 | PROVIDERS: ATTEND Internal Medicine | DX: Z51.81 Encounter for therapeutic drug level monitoring (principal); Z79.01 Long term (current) use of anticoagulants; I48.21 Permanent atrial fibrillation; I25.10 Atherosclerotic heart disease of native coronary artery without angina pectoris; E78.00 Pure hypercholesterolemia, unspecified; I10 Essential (primary) hypertension; G47.33 Obstructive sleep apnea (adult) (pediatric); Z87.891 Personal history of nicotine dependence ==

== ENCOUNTER → 2019-11-21 | Outpatient (CLI) | payer OTHER | LOC: SJCVC 13:00 | PROVIDERS: ATTEND Internal Medicine | DX: Z51.81 Encounter for therapeutic drug level monitoring (principal); I48.21 Permanent atrial fibrillation; I11.0 Hypertensive heart disease with heart failure; I50.9 Heart failure, unspecified; I25.810 Atherosclerosis of coronary artery bypass graft(s) without angina pectoris; M10.9 Gout, unspecified; E78.5 Hyperlipidemia, unspecified; M19.90 Unspecified osteoarthritis, unspecified site; Z95.1 Presence of aortocoronary bypass graft; Z79.01 Long term (current) use of anticoagulants; Z87.891 Personal history of nicotine dependence; Z79.899 Other long term (current) drug therapy ==

== ENCOUNTER → 2019-12-24 | Outpatient (CLI) | payer OTHER | LOC: SJCVC 13:27 | PROVIDERS: ATTEND Internal Medicine | DX: Z51.81 Encounter for therapeutic drug level monitoring (principal); I48.21 Permanent atrial fibrillation; G47.33 Obstructive sleep apnea (adult) (pediatric); I11.0 Hypertensive heart disease with heart failure; I50.9 Heart failure, unspecified; I25.10 Atherosclerotic heart disease of native coronary artery without angina pectoris; M10.9 Gout, unspecified; Z95.1 Presence of aortocoronary bypass graft; Z79.01 Long term (current) use of anticoagulants; Z79.899 Other long term (current) drug therapy ==

== ENCOUNTER 2020-01-12 10:26 | Inpatient (IN) | payer OTHER ==
[~2020-01-12] VITALS: Ht 175.3 cm; Wt 75.7 kg
[2020-01-12 10:29] VITALS: BP 142/76
[2020-01-12 12:19] LABS: ABSOLUTE NEUTROPHILS 8.2 thou/uL (1.4-8.2); BASOPHILS 0.6 % (0.0-2.0); EOSINOPHILS 1.7 % (0.0-3.0); HEMATOCRIT 36.5 % (42.0-52.0); HEMOGLOBIN 12.4 gm/dL (14.0-18.0); LYMPHOCYTES 12.5 % (24.0-44.0); MCH 32.2 pg (26.0-34.0); MCV 94.7 fL (80.0-100.0); MONOCYTES 7.4 % (1.0-8.0); PLATELET COUNT 209 thou/uL (150-400); POLYS 77.8 % (36.0-66.0); RBC 3.85 mil/uL (4.50-6.00); RDW 14.8 % (10.5-14.5); WBC 10.5 thou/uL (4.0-11.0)
[2020-01-12 12:26] LABS: ANION GAP 11 mmol/L (7-16); BUN 19 mg/dL (7-18); CALCIUM 8.8 mg/dL (8.5-10.1); CHLORIDE 105 mmol/L (98-107); CO2 27 mmol/L (21-32); CREATININE 1.2 mg/dL (0.7-1.3); GLUCOSE 119 mg/dL (74-106); SODIUM 143 mmol/L (136-145)
[2020-01-12 12:33] LABS: ALBUMIN 3.4 g/dL (3.4-5.0); DIRECT BILIRUBIN < 0.1 mg/dL (<0.1-0.2); LIPASE 80 U/L (73-393); SGOT 24 U/L (15-37); SGPT 21 U/L (30-65); TOTAL BILIRUBIN 0.3 mg/dL (0.2-1.0)
[2020-01-12 17:35] VITALS: BP 130/68
[2020-01-12 18:00] VITALS: BP 130/68
[2020-01-12 18:30] VITALS: BP 142/56
--- NOTE | 2020-01-12 18:58 | NUR ---
PATIENT ARRIED ON UNIT AT 18:10 FROM ER TO ROOM 438. PT ALERT XS 4 USED URINAL AND HAD 150 CC CLEAR YELLOW URINE. V.S. 98.1 18 72 142/56 O2 SAT = 96%RA 5' 9 AND WEIGHTS 167 LBS. PT GIVEN BOX MEAL SANDWICH CHIPS FRUIT CUP AND APPLESAUCE. IV FLUIDS AND IV ABT STARTED. PT STATES NO PAIN OR RESP DISTRESS WEARS C- PAP AT NIGHT. PT PLEASANT AND COOPERATIVE.
[2020-01-12 19:38] VITALS: BP 131/66
--- NOTE | 2020-01-13 03:00 | NUR ---
PT ASSESSED AT START OF SHIFT A&OX4. ADMISSION DONE AND PTORIENTED TO THE UNIT. RT KNEE ERYTHEMA NOTED WARM TO TOUCH. C/O PAIN MANAGED BY PO AND IV PAIN MEDS. PT IS NWB ON THE RIGHT FOOT URINAL AT BEDSIDE. ON 2L OF O2 AT NIGHT. FALL PRE4C IN PLACE AND CALL LIGHT AT REACH WILL CONT TO MONITOR TILL EOS.
[2020-01-13 03:54] VITALS: BP 137/62
[2020-01-13 05:52] LABS: HEMATOCRIT 34.8 % (42.0-52.0); HEMOGLOBIN 11.7 gm/dL (14.0-18.0); MCHC 33.8 g/dL (28.0-37.0); MCV 94.9 fL (80.0-100.0); RBC 3.67 mil/uL (4.50-6.00); RDW 14.9 % (10.5-14.5)
[2020-01-13 05:58] LABS: PROTIME 30.7 Seconds (9.3-11.4)
[2020-01-13 06:03] LABS: CALCIUM 7.9 mg/dL (8.5-10.1); CREATININE 1.2 mg/dL (0.7-1.3); POTASSIUM 4.1 mmol/L (3.5-5.1)
[2020-01-13 06:06] LABS: URINE BILIRUBIN NEGATIVE (Negative); URINE BLOOD NEGATIVE (Negative); URINE CLARITY CLEAR; URINE COLOR YELLOW; URINE GLUCOSE-RANDOM* NEGATIVE (Negative); URINE KETONES NEGATIVE (Negative); URINE LEUKOCYTES-REFLEX NEGATIVE (Negative); URINE NITRITE-REFLEX NEGATIVE (Negative); URINE PROTEIN (DIPSTICK) NEGATIVE (Negative); URINE SPECIFIC GRAVITY 1.025 (1.005-1.035); URINE UROBILINOGEN 0.2 E.U./dl (0.2-1.0)
[2020-01-13 07:20] VITALS: BP 120/69
[2020-01-13 13:03] LABS: BF NUCLEATED CELLS 15707 /mm3; BF RBC 9059 /mm3
[2020-01-13 13:04] LABS: TOTAL VOLUME 15 mL
[2020-01-13 13:05] LABS: CLARITY CLOUDY; COLOR AMBER
[2020-01-13 14:36] LABS: SOURCE KNEE JOINT
[2020-01-13 14:38] LABS: BF MACROPHAGE 11 %; BF NEUTROPHILS 88 %
[2020-01-13 16:20] VITALS: BP 117/59
[2020-01-13 16:29] LABS: SOURCE KNEE JOINT
[2020-01-13 19:51] VITALS: BP 103/54
--- NOTE | 2020-01-13 20:16 | NUR ---
Assumed care of pt. at 0700. Pt. is calm and cooperative. Pt. struggled to bear weight to get to commode. Gait belt and max assist used to help pt. get to commode. Pt. received CT scan of knee around noon. Fall percautions in place.
--- NOTE | 2020-01-14 04:09 | NUR ---
PATIENT ALERT AND ORIENTED X4. REMAINS IN BED. C/O PAIN TO RIGHT KNEE AND MEDICATED WITH VICODIN X1 WITH GOOD RESULTS. PATIENT HAD HIS KNEE (R) ASPIRATED TODAY 01/13/20. REDNESS AND SOME SWELLING NOTED. RESTING QUIETLY. WILL MONITOR.
[2020-01-14 05:46] LABS: HEMATOCRIT 36.5 % (42.0-52.0); HEMOGLOBIN 12.1 gm/dL (14.0-18.0); MCH 31.3 pg (26.0-34.0); MCHC 33.1 g/dL (28.0-37.0); MCV 94.6 fL (80.0-100.0); RBC 3.86 mil/uL (4.50-6.00); RDW 14.9 % (10.5-14.5); WBC 10.9 thou/uL (4.0-11.0)
[2020-01-14 05:58] LABS: INR 1.7; PROTIME 17.8 Seconds (9.3-11.4)
[2020-01-14 06:07] LABS: CALCIUM 7.8 mg/dL (8.5-10.1); CREATININE 1.2 mg/dL (0.7-1.3); POTASSIUM 3.5 mmol/L (3.5-5.1)
[2020-01-14 07:15] VITALS: BP 99/57
--- NOTE | 2020-01-14 10:27 | NUR ---
PT IS AXO4, VSS, NO C/O PAIN IN R KNEE AT THIS TIME. PT REMAINS IN BED, WORKING WITH PT & OT. IV PATENET IN L FA/SL. FALL PRECAUTIONS IN PLACE. PT CALLS APPROPRIATELY. WILL CONTINUE TO MONITOR.
[2020-01-14 16:15] VITALS: BP 128/67
--- NOTE | 2020-01-14 16:38 | NUR ---
PT ADMITTED RELATED TO RT KNEE CELLUITIS, GOUT. CM REVIEWED CHART AND SPOKE WITH CARE TEAM. CM CALLED AND SPOKE WITH PT THIS DAY. PT APPERARED TO BE A&O X4. CM ROLE INTRODUCED. PT INDICATED HE LVIES IN A HOUSE WITH HIS SPOUSE WITH 5-6 STEPS TO ENTER AND A FULL FLIGHT INSIDE. 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 . PT HAD [facility] IN PAST. PT RECEPTIVE TO POST ACUTE CARE STAY IF RECOMMENDED UPON DC. PT COMPLAINING OF PAIN AND ONLY PARTICIPATED IN OT THIS DAY. CM TO FOLLOW INDICATED WITH DC PLANNING.
[2020-01-14 21:40] VITALS: BP 103/47
--- NOTE | 2020-01-15 01:00 | NUR ---
PT CARE ASSUMED WITH PT IN BED WATCHING TV.PT IS A/O X4.PT IS UP WITH ASSIST AND CALLS OUT APPROPRIETELY.FALL PRECAUTION IN PLACE.RIGHT KNEE TENDER AND PAINFUL.PT IS ON 2L OF NC AND CPAP AT NIGHT.IV ACCESS ON LH .PT C/O PAIN AND WAS GIVEN HYDROCODONE WITH RELIEF.WILL CONTINUE TO MONITOR PER POC
[2020-01-15 04:20] VITALS: BP 95/57
[2020-01-15 06:09] LABS: INR 1.4; PROTIME 14.4 Seconds (9.3-11.4)
--- NOTE | 2020-01-15 11:39 | EKG ---
[facility] [place] [address] ELECTROCARDIOGRAM REPORT Name: CRYSTAL ALVARADO BRIAN Room #: 438-P ADM IN M.R.#: [id number] Admission: 01/12/20 Attend Phys: Romina Mills MD Discharge: Date of : 31 Report #: [id number] THIS REPORT FOR: cc: Parker Shelton MD, Steven E. MD Lammoglia, Francisco J. 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 : 1935 Requested By: Aki Smith Order Number: [id number] MD: Nelson Flores Measurements Intervals [place] Rate: 128 P: [place]: QRS: -13 QRSD: 103 T: 6 QT: 324 QTc: 473 Interpretive Statements Atrial fibrillation with rapid V-rate Poor R wave progression Isolated PVC versus Guero beat Nonspecific ST-T wave change Compared to ECG 06/06/2018 07:23:54 No significant changes Electronically Signed On 01-15-2020 11:39:26 CDT by Nelson Flores [email or web address] <ELECTRONICALLY SIGNED> By: Nelson Flores MD 01/15/20 1139 1111 1111 Nelson Flores MD /EPI
[2020-01-15 15:00] VITALS: BP 117/69
--- NOTE | 2020-01-15 17:05 | NUR ---
PT ASSESSED AT START OF SHIFT. RT KNEE PAIN DOING MUCH BETTER AND PT ABLE TO WALK SOME USING WALKER. HEART RATE NOTED TO BE IN THE 130'S THIS AM AND SPB IN THE 90'S. DR. GARCIA NOTIFIED AND CARDIZEM RESTARTED. HEART RATE HAS COME DOWN BUT IS VERY ERRATIC JUMPING AROUND DOWN TO 60'S AND UP TO 130. DR. GARCIA ORDERED PT TO BE TRANSFERED TO MED/SURG TELE UNIT SO TO MONITOR HR CLOSER. PT ASYMTOMATIC AND FEELING FINE.
[2020-01-15 17:10] VITALS: BP 116/63
[2020-01-15 18:00] VITALS: BP 122/69
--- NOTE | 2020-01-15 18:53 | NUR ---
Patient transferred to Room 459 from at 1800. Patient started on Telementary Monitoring due to fluctuations in heart rate. Patient continues on O2 @ 2 Liters per nc. He denies any complaints of pain and/or discomfort. Patient is currently sitting in his recliner with his call light in reach watching the [employer] Game. Vital signs stable. Will report to on-coming nurse.
[2020-01-15 20:26] VITALS: BP 102/62
[2020-01-16] VITALS (10 sets, daily range): BP systolic 102–140; BP diastolic 60–82
--- NOTE | 2020-01-16 04:38 | NUR ---
PROGRESS PT TELEMETRY HAS BEEN RUNNING AFIB WITH RATES IN THE 118'S TO 160'S, 5MG IV LOPRESSOR GIVEN WITH NO EFFECT. PT HAD DILTIAZEM PO EARLIER IN DAY WITH O EFFECT. PT DENIES SYMPTOMS AND HAS BEEN SLEEPING THROUGHOUT NOC. TANK HAAS MEDICAL TRANSCRIBER NOTIFIED ORDERED A ONETIME DOSE OF IV LOPRESSOR AND WHEN NOTIFIED THE SECOND TIME ORDERS OBTAINED TO TRANSFER TO ROOM 209. ATTEMPTED TO CALL REPORT BUT YU RODRIGUEZ NOT READY YET WILL CALL BACK FOR REPORT.
--- NOTE | 2020-01-16 05:17 | NUR ---
REPORT GIVEN TO YU RODRIGUEZ FROM [address] [place] [address] PT TRANSFERRED TO ROOM 209 VIA BED TELEMETRY BOX CHANGED TO ONE FROM [facility] AND [facility]'S BOX RETURNED TO UNIT.
[2020-01-16 06:09] LABS: CALCIUM 8.2 mg/dL (8.5-10.1); CREATININE 1.3 mg/dL (0.7-1.3); MAGNESIUM 2.3 mg/dL (1.8-2.4); POTASSIUM 3.3 mmol/L (3.5-5.1)
--- NOTE | 2020-01-16 08:05 | NUR ---
PT TRANSFERRED TO ROOM 209 AROUND 0510, PT IS AWAKE, ALERT AND ORIENTEDX4, AFIB ON THE MONITOR HR IN THE 150S, GAVE CARDIZEM BOLUS, STARTED ON CARDIZEM GTT, HR STILL ELEVATED, DENIES CHEST PAIN OR SOB, ASSESSMENTS CHARTED, PASSED ON REPORT TO DAY NURSE
[2020-01-16 14:02] LABS: INR 1.8; PROTIME 18.6 Seconds (9.3-11.4)
--- NOTE | 2020-01-16 18:22 | NUR ---
ASSUMED CARE AT SHIFT CHANGE, ALERT AND ORIENTED X4. AFIB 140-150/MIN ON THE MONITOR, HSE COORDINATOR CARDIO AT BEDSIDE,REMIANS ON CARDIZEM DRIP PER PROTOCOL AT 20MG/HR, AND PRN LOPERSOR IVP WAS GIVEN. OTHER VSS. AND WILL CONTINUE WITH POC.
[2020-01-17] VITALS (7 sets, daily range): BP systolic 113–125; BP diastolic 45–64
--- NOTE | 2020-01-17 01:03 | NUR ---
PT IS ALERT AND ORIENTED X4. LUNGS ARE CLEAR. ON 2 LITERS NASAL CANULA. AFIB ON THE MONITOR. ON CARDIZEM DRIP. HEART RATE FLUCTUATES FROM 140 TO 120, TO 110. UPDATED DR. ROJAS JUST WANTS PT ON HIS MEDS AND DRIP. NO NEW ORDERS. PT IS RESTING STATES HE IS TIRED FROM TODAY. EXHUASTED ENCOURAGE HIM TO GET SOME SLEEP AND IS CURRENTLY SLEEPING. CALL LIGHT WITHIN REACH IF NEEDS ASSISTANCE
[2020-01-17 05:57] LABS: HEMATOCRIT 35.4 % (42.0-52.0); HEMOGLOBIN 11.9 gm/dL (14.0-18.0); MCH 31.6 pg (26.0-34.0); MCHC 33.6 g/dL (28.0-37.0); MCV 94.1 fL (80.0-100.0); RBC 3.76 mil/uL (4.50-6.00); RDW 14.5 % (10.5-14.5); WBC 8.8 thou/uL (4.0-11.0)
[2020-01-17 06:30] LABS: PROTIME 32.1 Seconds (9.3-11.4)
[2020-01-17 06:32] LABS: INR 3.1
[2020-01-17 06:39] LABS: CALCIUM 7.8 mg/dL (8.5-10.1); CREATININE 1.3 mg/dL (0.7-1.3)
--- NOTE | 2020-01-17 17:22 | NUR ---
spoke with patient he denies need for rehab at nd. He does not wear oxygen at home. He has home CPAP. He reports agreeable to HH at nd and agreeable to any HH agency no preference. Plan home with HH at nd.
--- NOTE | 2020-01-17 18:28 | NUR ---
ASSUMED CARE AT SHIFT CHANGE, ASSESSMENT DOCUMNETED. HR 120-150 AND AFIB ON THE MONITOR. CARDIZEM GTT AT 20MG/HR, AND TITIRATED DOWN TO 10MG, AND DIGIXON IVP GIVEN PER ORDERS, HR IMPORVING AND OTHER VSS. PROGRESSING TOWARDS GOALS AND WILL CONTINUE WITH POC.
[2020-01-18 00:31] VITALS: BP 117/52
[2020-01-18 03:45] VITALS: BP 109/54
--- NOTE | 2020-01-18 03:53 | NUR ---
ASSESSMENT DOCUMENTED.PT BEEN RESTING IN NO ACUTE DISTRESS.A/OX4.REMAINS ON CARDIZEM DRIP PER ORDERS,INFUSING AT 10CC/HR,HR RANGING BETWEEN 80-9OS ON MONITOR.DENIES CHEST PAIN OR ANY DISCOMFORT.VOIDING VIA URINAL ADEQAUTELY.PT DENIES ANY NEEDS AT THIS TIME.POSSIBLE DISCHARGE TOORROW TO HOMW W/HH.WILL CONT TO MONITOR PER POC.
[2020-01-18 05:58] LABS: INR 3.6; PROTIME 36.7 Seconds (9.3-11.4)
[2020-01-18 08:05] VITALS: BP 125/61
[2020-01-18] MEDS ORDERED: DILTIAZEM 24HR240 M1 PO (10:02)
[2020-01-18] MEDS ORDERED: METOPROLOL SUCC50 MG PO (10:02)
[2020-01-18] MEDS ORDERED: DIGOXIN250 MCG PO (10:02)
[2020-01-18] MEDS ORDERED: KEFLEX500 M1 PO (10:11)
[2020-01-18] MEDS ORDERED: PREDNISONE 20 M20 M1 PO (10:11)
[2020-01-18 11:40] VITALS: BP 115/55
[2020-01-18 12:57] VITALS: BP 115/55
--- NOTE | 2020-01-18 14:10 | NUR ---
pt d/c to home w/[facility]. d/c search planner faxed konstantin.
--- NOTE | 2020-01-18 14:15 | NUR ---
REFERRAL FAXED TO [facility] HH SPOKE WITH TRISHA IN INTAKE THEY CAN ACCEPT. PT DISCHARGING TODAY TO HOME WITH [facility] HH FAXED DC ORDERS/SUMMARY SPOKE WITH TRISHA SHE RECEIVED ORDERS AND WILL NOTIFY PT TIME OF VISITS.
[2020-01-18 14:58] VITALS: BP 115/55
--- NOTE | 2020-01-18 15:12 | NUR ---
ASSESSMENT CHARTED. PT ALERT AND ORIENTED. DENIED HAVING PAIN OR DISCOMFORT. SEEN BY DR. GARCIA AND DR. ROJAS. ORDERS GIVEN TO DISCHARGE PT TO HOME WITH HOMEHEALTH. DISCHARGE INSTRUCTIONS GIVEN TP PT. PT VERBERLISED UNDERSTANDING.
== END 2020-01-18 15:14 | disposition home health service (06) | DRG 603 ==
LOC: ER 10:26 → EROBS 16:38 → 4S 16:38 → 4W 01-15 17:41 → 2N 01-16 05:17
PROVIDERS: Hospitalist; Nurse Practitioner; Nurse Practitioner Family; Orthopaedic Surgery Sports Medicine; ADMIT Internal Medicine; ATTEND Internal Medicine
PROC: 0S9C3ZZ Drainage of Right Knee Joint, Percutaneous Approach (ICD-10-PCS; principal; 2020-01-13)
DX: L03.115 Cellulitis of right lower limb (principal); I48.21 Permanent atrial fibrillation; M10.061 Idiopathic gout, right knee; M17.11 Unilateral primary osteoarthritis, right knee; I25.10 Atherosclerotic heart disease of native coronary artery without angina pectoris; I10 Essential (primary) hypertension; E78.5 Hyperlipidemia, unspecified; N40.0 Benign prostatic hyperplasia without lower urinary tract symptoms; M19.90 Unspecified osteoarthritis, unspecified site; Z96.652 Presence of left artificial knee joint; G47.33 Obstructive sleep apnea (adult) (pediatric); E87.6 Hypokalemia; G47.00 Insomnia, unspecified; Z79.01 Long term (current) use of anticoagulants; Z95.1 Presence of aortocoronary bypass graft; Z88.8 Allergy status to other drugs, medicaments and biological substances; Z90.49 Acquired absence of other specified parts of digestive tract; Z87.891 Personal history of nicotine dependence; Z82.49 Family history of ischemic heart disease and other diseases of the circulatory system; I25.2 Old myocardial infarction
CPT/HCPCS: 10045; 10081; 10195

== ENCOUNTER → 2020-01-25 | Outpatient (CLI) | payer OTHER ==
[~2020-01-25] MED LIST changes: +DIGOXIN250 MCG PO; +DILTIAZEM 24HR240 M1 PO; +KEFLEX500 M1 PO; +METOPROLOL SUCC50 MG PO; +PREDNISONE 20 M20 M1 PO
== END ==
LOC: SJCVC 14:28
PROVIDERS: ATTEND Internal Medicine
DX: I48.91 Unspecified atrial fibrillation (principal); R94.31 Abnormal electrocardiogram [ECG] [EKG]; I48.21 Permanent atrial fibrillation; I11.0 Hypertensive heart disease with heart failure; I50.32 Chronic diastolic (congestive) heart failure; I25.10 Atherosclerotic heart disease of native coronary artery without angina pectoris; E78.5 Hyperlipidemia, unspecified; Z79.899 Other long term (current) drug therapy; Z79.01 Long term (current) use of anticoagulants

== ENCOUNTER → 2020-02-27 | Outpatient (CLI) | payer OTHER | LOC: SJCVC 12:51 | PROVIDERS: ATTEND Internal Medicine | DX: Z51.81 Encounter for therapeutic drug level monitoring (principal); I48.21 Permanent atrial fibrillation; G47.33 Obstructive sleep apnea (adult) (pediatric); I25.10 Atherosclerotic heart disease of native coronary artery without angina pectoris; I11.0 Hypertensive heart disease with heart failure; I50.9 Heart failure, unspecified; E78.00 Pure hypercholesterolemia, unspecified; Z95.1 Presence of aortocoronary bypass graft; Z87.891 Personal history of nicotine dependence; Z79.01 Long term (current) use of anticoagulants; Z79.899 Other long term (current) drug therapy ==

== ENCOUNTER → 2020-03-06 | Outpatient (CLI) | payer OTHER | LOC: SJCVC 13:26 | PROVIDERS: ATTEND Internal Medicine | DX: Z51.81 Encounter for therapeutic drug level monitoring (principal); I48.21 Permanent atrial fibrillation; G47.33 Obstructive sleep apnea (adult) (pediatric); I25.10 Atherosclerotic heart disease of native coronary artery without angina pectoris; I10 Essential (primary) hypertension; M10.9 Gout, unspecified; E78.5 Hyperlipidemia, unspecified; Z95.1 Presence of aortocoronary bypass graft; Z79.01 Long term (current) use of anticoagulants; Z79.899 Other long term (current) drug therapy; Z87.891 Personal history of nicotine dependence ==

== ENCOUNTER → 2020-03-20 | Outpatient (CLI) | payer OTHER | LOC: SJCVC 13:30 | PROVIDERS: ATTEND Internal Medicine | DX: Z51.81 Encounter for therapeutic drug level monitoring (principal); Z79.01 Long term (current) use of anticoagulants ==

== ENCOUNTER → 2020-03-24 | Outpatient (CLI) | payer OTHER | LOC: SJCVC 13:37 | PROVIDERS: ATTEND Internal Medicine | DX: Z51.81 Encounter for therapeutic drug level monitoring (principal); Z79.01 Long term (current) use of anticoagulants ==

== ENCOUNTER → 2020-04-07 | Outpatient (CLI) | payer OTHER | LOC: SJCVC 14:53 | PROVIDERS: ATTEND Internal Medicine | DX: I48.21 Permanent atrial fibrillation (principal); R94.31 Abnormal electrocardiogram [ECG] [EKG]; I50.32 Chronic diastolic (congestive) heart failure; I11.0 Hypertensive heart disease with heart failure; I25.10 Atherosclerotic heart disease of native coronary artery without angina pectoris; E78.5 Hyperlipidemia, unspecified; I36.1 Nonrheumatic tricuspid (valve) insufficiency; G47.33 Obstructive sleep apnea (adult) (pediatric); Z79.01 Long term (current) use of anticoagulants; Z79.899 Other long term (current) drug therapy ==

== ENCOUNTER → 2020-04-14 | Outpatient (CLI) | payer OTHER | LOC: SJCVC 13:30 | PROVIDERS: ATTEND Internal Medicine | DX: Z51.81 Encounter for therapeutic drug level monitoring (principal); I48.21 Permanent atrial fibrillation; G47.33 Obstructive sleep apnea (adult) (pediatric); I25.10 Atherosclerotic heart disease of native coronary artery without angina pectoris; I11.0 Hypertensive heart disease with heart failure; I50.9 Heart failure, unspecified; M10.9 Gout, unspecified; E78.00 Pure hypercholesterolemia, unspecified; Z95.1 Presence of aortocoronary bypass graft; Z79.01 Long term (current) use of anticoagulants; Z79.899 Other long term (current) drug therapy; Z87.891 Personal history of nicotine dependence ==

== ENCOUNTER → 2020-04-17 | Outpatient (CLI) | payer OTHER | LOC: HYPER 13:11 | PROVIDERS: ATTEND Emergency Medicine | DX: L97.821 Non-pressure chronic ulcer of other part of left lower leg limited to breakdown of skin (principal); L97.812 Non-pressure chronic ulcer of other part of right lower leg with fat layer exposed; R60.0 Localized edema; E78.5 Hyperlipidemia, unspecified; G47.33 Obstructive sleep apnea (adult) (pediatric); I11.0 Hypertensive heart disease with heart failure; I50.32 Chronic diastolic (congestive) heart failure; I25.10 Atherosclerotic heart disease of native coronary artery without angina pectoris; I48.21 Permanent atrial fibrillation; M19.90 Unspecified osteoarthritis, unspecified site; M10.9 Gout, unspecified; Z90.49 Acquired absence of other specified parts of digestive tract; Z87.891 Personal history of nicotine dependence; Z95.1 Presence of aortocoronary bypass graft; Z96.652 Presence of left artificial knee joint ==

== ENCOUNTER → 2020-04-23 | Outpatient (CLI) | payer OTHER | LOC: HYPER 13:58 | PROVIDERS: ATTEND Emergency Medicine Emergency Medical Services | DX: L97.822 Non-pressure chronic ulcer of other part of left lower leg with fat layer exposed (principal); L97.812 Non-pressure chronic ulcer of other part of right lower leg with fat layer exposed; R60.0 Localized edema; E78.5 Hyperlipidemia, unspecified; G47.33 Obstructive sleep apnea (adult) (pediatric); I87.2 Venous insufficiency (chronic) (peripheral); I11.0 Hypertensive heart disease with heart failure; I50.32 Chronic diastolic (congestive) heart failure; I25.10 Atherosclerotic heart disease of native coronary artery without angina pectoris; I48.21 Permanent atrial fibrillation; M19.90 Unspecified osteoarthritis, unspecified site; M10.9 Gout, unspecified; Z90.49 Acquired absence of other specified parts of digestive tract; Z87.891 Personal history of nicotine dependence; Z95.1 Presence of aortocoronary bypass graft; Z96.652 Presence of left artificial knee joint ==

== ENCOUNTER → 2020-04-28 | Outpatient (CLI) | payer OTHER | LOC: SJCVC 13:25 | PROVIDERS: ATTEND Internal Medicine | DX: Z51.81 Encounter for therapeutic drug level monitoring (principal); I10 Essential (primary) hypertension; G47.33 Obstructive sleep apnea (adult) (pediatric); I48.0 Paroxysmal atrial fibrillation; I25.10 Atherosclerotic heart disease of native coronary artery without angina pectoris; Z79.01 Long term (current) use of anticoagulants ==

== ENCOUNTER → 2020-05-07 | Outpatient (CLI) | payer OTHER | LOC: SJCVC 15:16 | PROVIDERS: ATTEND Internal Medicine | DX: Z51.81 Encounter for therapeutic drug level monitoring (principal); I48.21 Permanent atrial fibrillation; G47.33 Obstructive sleep apnea (adult) (pediatric); I25.10 Atherosclerotic heart disease of native coronary artery without angina pectoris; I11.0 Hypertensive heart disease with heart failure; I50.9 Heart failure, unspecified; M10.9 Gout, unspecified; M19.90 Unspecified osteoarthritis, unspecified site; E78.5 Hyperlipidemia, unspecified; Z95.1 Presence of aortocoronary bypass graft; Z79.01 Long term (current) use of anticoagulants; Z79.899 Other long term (current) drug therapy; Z87.891 Personal history of nicotine dependence ==

== ENCOUNTER → 2020-05-07 | Outpatient (CLI) | payer OTHER | LOC: HYPER 11:27 | PROVIDERS: ATTEND Emergency Medicine | DX: L97.822 Non-pressure chronic ulcer of other part of left lower leg with fat layer exposed (principal); L97.812 Non-pressure chronic ulcer of other part of right lower leg with fat layer exposed; R60.0 Localized edema; E78.5 Hyperlipidemia, unspecified; G47.33 Obstructive sleep apnea (adult) (pediatric); I87.2 Venous insufficiency (chronic) (peripheral); I11.0 Hypertensive heart disease with heart failure; I50.32 Chronic diastolic (congestive) heart failure; I25.10 Atherosclerotic heart disease of native coronary artery without angina pectoris; I48.21 Permanent atrial fibrillation; M19.90 Unspecified osteoarthritis, unspecified site; M10.9 Gout, unspecified; Z90.49 Acquired absence of other specified parts of digestive tract; Z87.891 Personal history of nicotine dependence; Z95.1 Presence of aortocoronary bypass graft; Z96.652 Presence of left artificial knee joint ==

== ENCOUNTER → 2020-05-21 | Outpatient (CLI) | payer OTHER | LOC: HYPER 13:06 | PROVIDERS: ATTEND Emergency Medicine Emergency Medical Services | DX: L97.822 Non-pressure chronic ulcer of other part of left lower leg with fat layer exposed (principal); L97.812 Non-pressure chronic ulcer of other part of right lower leg with fat layer exposed; R60.0 Localized edema; E78.5 Hyperlipidemia, unspecified; G47.33 Obstructive sleep apnea (adult) (pediatric); I87.2 Venous insufficiency (chronic) (peripheral); I11.0 Hypertensive heart disease with heart failure; I50.32 Chronic diastolic (congestive) heart failure; I25.10 Atherosclerotic heart disease of native coronary artery without angina pectoris; I48.21 Permanent atrial fibrillation; M19.90 Unspecified osteoarthritis, unspecified site; M10.9 Gout, unspecified; Z87.891 Personal history of nicotine dependence; Z95.1 Presence of aortocoronary bypass graft ==

== ENCOUNTER → 2020-05-28 | Outpatient (CLI) | payer OTHER | LOC: SJCVC 14:21 | PROVIDERS: ATTEND Internal Medicine | DX: Z51.81 Encounter for therapeutic drug level monitoring (principal); I48.21 Permanent atrial fibrillation; G47.33 Obstructive sleep apnea (adult) (pediatric); I11.0 Hypertensive heart disease with heart failure; I50.9 Heart failure, unspecified; I25.10 Atherosclerotic heart disease of native coronary artery without angina pectoris; M19.90 Unspecified osteoarthritis, unspecified site; M10.9 Gout, unspecified; E78.00 Pure hypercholesterolemia, unspecified; E78.5 Hyperlipidemia, unspecified; Z95.1 Presence of aortocoronary bypass graft; Z79.01 Long term (current) use of anticoagulants; Z79.899 Other long term (current) drug therapy; Z87.891 Personal history of nicotine dependence ==

== ENCOUNTER → 2020-06-06 | Outpatient (CLI) | payer OTHER | LOC: SJCVC 14:11 | PROVIDERS: ATTEND Internal Medicine | DX: Z51.81 Encounter for therapeutic drug level monitoring (principal); G47.33 Obstructive sleep apnea (adult) (pediatric); I48.0 Paroxysmal atrial fibrillation; I25.10 Atherosclerotic heart disease of native coronary artery without angina pectoris; I11.0 Hypertensive heart disease with heart failure; I50.9 Heart failure, unspecified; R60.0 Localized edema; M10.9 Gout, unspecified; E78.00 Pure hypercholesterolemia, unspecified; E78.5 Hyperlipidemia, unspecified; Z95.1 Presence of aortocoronary bypass graft; Z87.891 Personal history of nicotine dependence; Z79.01 Long term (current) use of anticoagulants ==

== ENCOUNTER → 2020-06-23 | Outpatient (CLI) | payer OTHER | LOC: SJCVC 13:43 | PROVIDERS: ATTEND Internal Medicine | DX: Z51.81 Encounter for therapeutic drug level monitoring (principal); Z79.01 Long term (current) use of anticoagulants; Z79.899 Other long term (current) drug therapy; Z88.8 Allergy status to other drugs, medicaments and biological substances; Z87.891 Personal history of nicotine dependence; Z72.89 Other problems related to lifestyle; Z90.89 Acquired absence of other organs; Z98.890 Other specified postprocedural states ==

== ENCOUNTER → 2020-08-27 | Outpatient (CLI) | payer OTHER | LOC: SJCVC 13:13 | PROVIDERS: ATTEND Internal Medicine | DX: Z51.81 Encounter for therapeutic drug level monitoring (principal); I48.21 Permanent atrial fibrillation; G47.33 Obstructive sleep apnea (adult) (pediatric); I25.10 Atherosclerotic heart disease of native coronary artery without angina pectoris; I11.0 Hypertensive heart disease with heart failure; I50.9 Heart failure, unspecified; I65.23 Occlusion and stenosis of bilateral carotid arteries; M10.9 Gout, unspecified; E78.00 Pure hypercholesterolemia, unspecified; E78.5 Hyperlipidemia, unspecified; Z95.1 Presence of aortocoronary bypass graft; Z79.01 Long term (current) use of anticoagulants; Z79.899 Other long term (current) drug therapy; Z87.891 Personal history of nicotine dependence ==

== ENCOUNTER → 2020-09-05 | Outpatient (CLI) | payer OTHER | LOC: SJCVC 14:07 | PROVIDERS: ATTEND Internal Medicine | DX: Z51.81 Encounter for therapeutic drug level monitoring (principal); I48.0 Paroxysmal atrial fibrillation; I25.10 Atherosclerotic heart disease of native coronary artery without angina pectoris; G47.33 Obstructive sleep apnea (adult) (pediatric); I11.0 Hypertensive heart disease with heart failure; I50.9 Heart failure, unspecified; M10.9 Gout, unspecified; E78.00 Pure hypercholesterolemia, unspecified; E78.5 Hyperlipidemia, unspecified; Z79.01 Long term (current) use of anticoagulants; Z87.891 Personal history of nicotine dependence; Z95.1 Presence of aortocoronary bypass graft ==

== ENCOUNTER → 2020-09-19 | Outpatient (CLI) | payer OTHER | LOC: SJCVC 13:17 | PROVIDERS: ATTEND Internal Medicine | DX: Z51.81 Encounter for therapeutic drug level monitoring (principal); I48.21 Permanent atrial fibrillation; I25.10 Atherosclerotic heart disease of native coronary artery without angina pectoris; I77.9 Disorder of arteries and arterioles, unspecified; I50.9 Heart failure, unspecified; I11.0 Hypertensive heart disease with heart failure; I65.23 Occlusion and stenosis of bilateral carotid arteries; I36.1 Nonrheumatic tricuspid (valve) insufficiency; M10.9 Gout, unspecified; E78.00 Pure hypercholesterolemia, unspecified; E78.5 Hyperlipidemia, unspecified; Z95.1 Presence of aortocoronary bypass graft; Z79.01 Long term (current) use of anticoagulants; Z87.891 Personal history of nicotine dependence ==

== ENCOUNTER → 2020-09-22 | Outpatient (CLI) | payer OTHER | LOC: RAD 10:12 | PROVIDERS: ATTEND Internal Medicine | DX: J98.4 Other disorders of lung (principal); J44.9 Chronic obstructive pulmonary disease, unspecified; I51.7 Cardiomegaly; Z98.890 Other specified postprocedural states ==

== ENCOUNTER → 2020-10-22 | Outpatient (CLI) | payer OTHER | LOC: SJCVC 13:52 | PROVIDERS: ATTEND Internal Medicine | DX: Z51.81 Encounter for therapeutic drug level monitoring (principal); I48.21 Permanent atrial fibrillation; G47.33 Obstructive sleep apnea (adult) (pediatric); I25.10 Atherosclerotic heart disease of native coronary artery without angina pectoris; I11.0 Hypertensive heart disease with heart failure; I50.9 Heart failure, unspecified; I65.23 Occlusion and stenosis of bilateral carotid arteries; M19.90 Unspecified osteoarthritis, unspecified site; M10.9 Gout, unspecified; E78.5 Hyperlipidemia, unspecified; Z95.1 Presence of aortocoronary bypass graft; Z79.01 Long term (current) use of anticoagulants; Z79.899 Other long term (current) drug therapy; Z87.891 Personal history of nicotine dependence ==

== ENCOUNTER → 2020-11-19 | Outpatient (CLI) | payer OTHER | LOC: SJCVC 12:55 | PROVIDERS: ATTEND Internal Medicine | DX: Z51.81 Encounter for therapeutic drug level monitoring (principal); I48.20 Chronic atrial fibrillation, unspecified; G47.33 Obstructive sleep apnea (adult) (pediatric); I25.10 Atherosclerotic heart disease of native coronary artery without angina pectoris; I11.0 Hypertensive heart disease with heart failure; I50.9 Heart failure, unspecified; I65.23 Occlusion and stenosis of bilateral carotid arteries; M10.9 Gout, unspecified; E78.00 Pure hypercholesterolemia, unspecified; E78.5 Hyperlipidemia, unspecified; Z95.1 Presence of aortocoronary bypass graft; Z79.01 Long term (current) use of anticoagulants; Z79.899 Other long term (current) drug therapy; Z87.891 Personal history of nicotine dependence ==

== ENCOUNTER → 2021-01-08 | Outpatient (CLI) | payer OTHER | LOC: SJCVC 11:12 | PROVIDERS: ATTEND Internal Medicine | DX: Z51.81 Encounter for therapeutic drug level monitoring (principal); I48.21 Permanent atrial fibrillation; I25.10 Atherosclerotic heart disease of native coronary artery without angina pectoris; Z79.01 Long term (current) use of anticoagulants ==

== ENCOUNTER → 2021-02-26 | Outpatient (CLI) | payer OTHER | LOC: SJCVC 12:54 | PROVIDERS: ATTEND Internal Medicine | DX: R94.31 Abnormal electrocardiogram [ECG] [EKG] (principal); I48.21 Permanent atrial fibrillation; I11.0 Hypertensive heart disease with heart failure; I50.32 Chronic diastolic (congestive) heart failure; I25.10 Atherosclerotic heart disease of native coronary artery without angina pectoris; I36.1 Nonrheumatic tricuspid (valve) insufficiency; E78.5 Hyperlipidemia, unspecified; G47.33 Obstructive sleep apnea (adult) (pediatric); E78.00 Pure hypercholesterolemia, unspecified; Z95.1 Presence of aortocoronary bypass graft; Z88.8 Allergy status to other drugs, medicaments and biological substances; Z72.89 Other problems related to lifestyle; Z79.899 Other long term (current) drug therapy; Z87.891 Personal history of nicotine dependence ==

== ENCOUNTER → 2021-03-05 | Outpatient (CLI) | payer OTHER | LOC: SJCVC 10:23 | PROVIDERS: ATTEND Internal Medicine | DX: Z51.81 Encounter for therapeutic drug level monitoring (principal); Z79.01 Long term (current) use of anticoagulants ==

== ENCOUNTER → 2021-03-23 | Outpatient (CLI) | payer OTHER | LOC: SJCVC 13:15 | PROVIDERS: ATTEND Internal Medicine | DX: Z51.81 Encounter for therapeutic drug level monitoring (principal); E78.00 Pure hypercholesterolemia, unspecified; I50.9 Heart failure, unspecified; M10.9 Gout, unspecified; G47.33 Obstructive sleep apnea (adult) (pediatric); Z79.01 Long term (current) use of anticoagulants; Z79.899 Other long term (current) drug therapy; Z87.891 Personal history of nicotine dependence; Z72.89 Other problems related to lifestyle; Z88.8 Allergy status to other drugs, medicaments and biological substances; Z95.1 Presence of aortocoronary bypass graft ==

== ENCOUNTER → 2021-04-13 | Outpatient (CLI) | payer OTHER | LOC: SJCVC 12:04 | PROVIDERS: ATTEND Internal Medicine | DX: Z51.81 Encounter for therapeutic drug level monitoring (principal); I25.10 Atherosclerotic heart disease of native coronary artery without angina pectoris; E78.00 Pure hypercholesterolemia, unspecified; G47.33 Obstructive sleep apnea (adult) (pediatric); I10 Essential (primary) hypertension; Z79.01 Long term (current) use of anticoagulants; Z79.899 Other long term (current) drug therapy; Z87.891 Personal history of nicotine dependence; Z72.89 Other problems related to lifestyle; Z88.8 Allergy status to other drugs, medicaments and biological substances ==

== ENCOUNTER → 2021-04-29 | Outpatient (CLI) | payer OTHER | LOC: SJCVC 10:31 | PROVIDERS: ATTEND Internal Medicine | DX: Z51.81 Encounter for therapeutic drug level monitoring (principal); G47.33 Obstructive sleep apnea (adult) (pediatric); I25.10 Atherosclerotic heart disease of native coronary artery without angina pectoris; I50.9 Heart failure, unspecified; I11.0 Hypertensive heart disease with heart failure; E78.00 Pure hypercholesterolemia, unspecified; E78.5 Hyperlipidemia, unspecified; Z79.01 Long term (current) use of anticoagulants; Z79.899 Other long term (current) drug therapy; Z95.1 Presence of aortocoronary bypass graft; Z87.891 Personal history of nicotine dependence ==

== ENCOUNTER → 2021-05-06 | Outpatient (CLI) | payer OTHER | LOC: SJCVC 10:39 | PROVIDERS: ATTEND Internal Medicine | DX: Z51.81 Encounter for therapeutic drug level monitoring (principal); Z79.01 Long term (current) use of anticoagulants ==

== ENCOUNTER → 2021-05-07 | Outpatient (CLI) | payer OTHER | LOC: HYPER 08:37 | PROVIDERS: ATTEND Emergency Medicine | DX: I87.312 Chronic venous hypertension (idiopathic) with ulcer of left lower extremity (principal); L97.822 Non-pressure chronic ulcer of other part of left lower leg with fat layer exposed; R60.0 Localized edema; E78.5 Hyperlipidemia, unspecified; G47.33 Obstructive sleep apnea (adult) (pediatric); I11.0 Hypertensive heart disease with heart failure; I50.32 Chronic diastolic (congestive) heart failure; I25.10 Atherosclerotic heart disease of native coronary artery without angina pectoris; I48.21 Permanent atrial fibrillation; M19.90 Unspecified osteoarthritis, unspecified site; M10.9 Gout, unspecified; Z87.891 Personal history of nicotine dependence; Z95.1 Presence of aortocoronary bypass graft; Z90.49 Acquired absence of other specified parts of digestive tract; Z96.652 Presence of left artificial knee joint ==

== ENCOUNTER → 2021-05-11 | Outpatient (CLI) | payer OTHER | LOC: HYPER 07:42 | PROVIDERS: ATTEND Emergency Medicine | DX: I87.312 Chronic venous hypertension (idiopathic) with ulcer of left lower extremity (principal); L97.822 Non-pressure chronic ulcer of other part of left lower leg with fat layer exposed; R60.0 Localized edema; E78.5 Hyperlipidemia, unspecified; G47.33 Obstructive sleep apnea (adult) (pediatric); I11.0 Hypertensive heart disease with heart failure; I50.32 Chronic diastolic (congestive) heart failure; I25.10 Atherosclerotic heart disease of native coronary artery without angina pectoris; I48.21 Permanent atrial fibrillation; M19.90 Unspecified osteoarthritis, unspecified site; M10.9 Gout, unspecified; Z87.891 Personal history of nicotine dependence; Z95.1 Presence of aortocoronary bypass graft; Z90.49 Acquired absence of other specified parts of digestive tract; Z96.652 Presence of left artificial knee joint ==

== ENCOUNTER → 2021-05-20 | Outpatient (CLI) | payer OTHER | LOC: SJCVC 14:00 | PROVIDERS: ATTEND Internal Medicine | DX: Z51.81 Encounter for therapeutic drug level monitoring (principal); E78.5 Hyperlipidemia, unspecified; I10 Essential (primary) hypertension; I25.10 Atherosclerotic heart disease of native coronary artery without angina pectoris; G47.33 Obstructive sleep apnea (adult) (pediatric); M10.9 Gout, unspecified; E78.00 Pure hypercholesterolemia, unspecified; Z79.01 Long term (current) use of anticoagulants; Z79.899 Other long term (current) drug therapy; Z95.1 Presence of aortocoronary bypass graft ==

== ENCOUNTER → 2021-05-25 | Outpatient (CLI) | payer OTHER | LOC: HYPER 11:31 | PROVIDERS: ATTEND Emergency Medicine | DX: I87.312 Chronic venous hypertension (idiopathic) with ulcer of left lower extremity (principal); L97.822 Non-pressure chronic ulcer of other part of left lower leg with fat layer exposed; R60.0 Localized edema; E78.5 Hyperlipidemia, unspecified; G47.33 Obstructive sleep apnea (adult) (pediatric); I11.0 Hypertensive heart disease with heart failure; I50.32 Chronic diastolic (congestive) heart failure; I25.10 Atherosclerotic heart disease of native coronary artery without angina pectoris; I48.21 Permanent atrial fibrillation; M19.90 Unspecified osteoarthritis, unspecified site; M10.9 Gout, unspecified; Z87.891 Personal history of nicotine dependence; Z95.1 Presence of aortocoronary bypass graft; Z90.49 Acquired absence of other specified parts of digestive tract; Z96.652 Presence of left artificial knee joint ==

== ENCOUNTER → 2021-06-17 | Outpatient (CLI) | payer OTHER | LOC: SJCVC 09:10 | PROVIDERS: ATTEND Internal Medicine | DX: Z51.81 Encounter for therapeutic drug level monitoring (principal); G47.33 Obstructive sleep apnea (adult) (pediatric); I25.10 Atherosclerotic heart disease of native coronary artery without angina pectoris; I50.9 Heart failure, unspecified; E78.00 Pure hypercholesterolemia, unspecified; Z79.01 Long term (current) use of anticoagulants; Z79.899 Other long term (current) drug therapy; Z87.891 Personal history of nicotine dependence; Z72.89 Other problems related to lifestyle; Z95.1 Presence of aortocoronary bypass graft; Z82.49 Family history of ischemic heart disease and other diseases of the circulatory system ==

== ENCOUNTER → 2021-06-17 | Outpatient (CLI) | payer OTHER | LOC: HYPER 09:32 | PROVIDERS: ATTEND Emergency Medicine | DX: I87.312 Chronic venous hypertension (idiopathic) with ulcer of left lower extremity (principal); L97.822 Non-pressure chronic ulcer of other part of left lower leg with fat layer exposed; R60.0 Localized edema; E78.5 Hyperlipidemia, unspecified; G47.33 Obstructive sleep apnea (adult) (pediatric); I11.0 Hypertensive heart disease with heart failure; I50.32 Chronic diastolic (congestive) heart failure; I25.10 Atherosclerotic heart disease of native coronary artery without angina pectoris; I48.21 Permanent atrial fibrillation; M19.90 Unspecified osteoarthritis, unspecified site; M10.9 Gout, unspecified; Z87.891 Personal history of nicotine dependence; Z95.1 Presence of aortocoronary bypass graft; Z90.49 Acquired absence of other specified parts of digestive tract; Z96.652 Presence of left artificial knee joint ==